=== PATIENT | male | born 1945 | race Caucasian/White ===

== ENCOUNTER 2017-07-23 05:41 | Day surgery (SDC) | payer OTHER, SELFPAY ==
[2017-07-23 06:13] VITALS: BP 125/89; PULSE 91; RESP 16; O2SAT 95; BMI 23.3
[2017-07-23 07:16] VITALS: BP 112/76; BP 125/89; PULSE 75; RESP 18; TEMP 36.4; O2SAT 98
--- NOTE | 2017-07-23 07:16 | PCM.OPRPT ---
Problem List (1) Encounter for screening for malignant neoplasm of colon Status: Acute Report of Operation Date of Procedure: 07/23/17 Pre-Operative Diagnosis: Z12.11 screening colonoscopy Post-Operative Diagnosis: Same Surgery/Procedure Performed:: [id number] colonoscopy Type of Anesthesia:: MAC Anesthesiologist: Branden Ling Description of Procedure: Patient was brought into the endoscopy suite and placed in the left lateral decubitus position. Patient was given graded anesthesia. Scope was inserted into the rectum. The scope was directed through the sigmoid colon, descending colon, transverse colon, ascending colon, to the cecum. Operative findings: 1. Cecum: Normal appearance no mass lesions normal ileocecal valve. 2. Ascending colon: Normal appearance no mass lesions. 3. Transverse colon: Normal appearance no mass lesions. 4. descending colon: Normal appearance no mass lesions. 5. Sigmoid colon: Normal appearance no mass lesions. 6. Rectum: Normal appearance no mass lesions retroflexion did show some internal hemorrhoids no masses are identified. Digital rectal exam was performed showing a smooth prostate with no masses within the anus. Patient will need to have another colonoscopy in 10 years.
--- NOTE | 2017-07-23 07:17 | HP.PCM_ITS ---
Problem List (1) Encounter for screening for malignant neoplasm of colon Status: Acute History of Present Illness Date of Admission: 07/23/17 The patient is a 72 year old M who presents for screening colonoscopy. Past Medical History Past Medical History (Chronic Problems): Chronic Problems (Last Reviewed 05/01/17 @ 16:48 by Esdras Camarena MD) Status post coronary artery stent placement (Chronic ~11/28/08) [id number] Atherosclerotic heart disease of [place] coronary artery without angina pectoris (Chronic) Hypertension (Chronic) Hyperlipidemia (Chronic) Allergies No Known Allergies Allergy (Verified 07/19/17 10:05) Home Medications: Ambulatory Orders Medication Instructions Recorded aspirin 81 mg tablet,delayed 81 mg PO QDAY 05/01/17 release atorvastatin 10 mg tablet 10 mg PO DAILY 90 Days 05/01/17 lisinopril 5 mg tablet 2.5 mg PO DAILY 90 Days 05/01/17 metoprolol succinate ER 50 mg 50 mg PO DAILY 90 Days 05/01/17 tablet,extended release 24 hr multivitamin tablet 1 tab PO QAM 05/01/17 Smoking Status: Former smoker - *Family History Maternal History Items: No pertinent history VTE Information - Inpt Only VTE Present on Admission: No VTE Mechan Device Prophylaxis: None VTE Pharm Prophylaxis ordered?: No Reason prophylaxis not ordered:: Treatment Not Indicated Patient Problems: Active and Suspected Problems (Last Reviewed 05/01/17 @ 16:48 by Esdras Camarena MD ) Encounter for screening for malignant neoplasm of colon (Acute) - Physical Exam Neck: Supple, No JVD Lungs: Clear to auscultation Cardiovascular: Regular rate, Regular Rhythm, No murmurs Abdomen: Bowel Sounds Present, Soft, Non Tender, Non-Distended Vital Signs Pulse Resp BP Pulse Ox 91 16 125/89 H 95 07/23/17 06:13 07/23/17 06:13 07/23/17 06:13 07/23/17 06:13 Oxygen Delivery Method Room Air Weight: 162 lb 7.691 oz Body Mass Index (BMI) 23.3 Assessment/Plan Active and Suspected Problems (Last Reviewed 05/01/17 @ 16:48 by Esdras Camarena MD ) Encounter for screening for malignant neoplasm of colon (Acute) My plan is to perform a colonoscopy.
--- NOTE | 2017-07-23 07:19 | OP.PCM_ITS ---
Problem List (1) Encounter for screening for malignant neoplasm of colon Status: Acute Report of Operation Date of Procedure: 07/23/17 Pre-Operative Diagnosis: Z12.11 screening colonoscopy Post-Operative Diagnosis: Same Surgery/Procedure Performed:: [id number] colonoscopy Type of Anesthesia:: MAC Anesthesiologist: Branden Ling Description of Procedure: Patient was brought into the endoscopy suite and placed in the left lateral decubitus position. Patient was given graded anesthesia. Scope was inserted into the rectum. The scope was directed through the sigmoid colon, descending colon, transverse colon, ascending colon, to the cecum. Operative findings: 1. Cecum: Normal appearance no mass lesions normal ileocecal valve. 2. Ascending colon: Normal appearance no mass lesions. 3. Transverse colon: Normal appearance no mass lesions. 4. descending colon: Normal appearance no mass lesions. 5. Sigmoid colon: Normal appearance no mass lesions. 6. Rectum: Normal appearance no mass lesions retroflexion did show some internal hemorrhoids no masses are identified. Digital rectal exam was performed showing a smooth prostate with no masses within the anus. Patient will need to have another colonoscopy in 10 years.
[2017-07-23 07:20] VITALS: BP 108/76; BP 125/89; PULSE 74; RESP 18; O2SAT 99
[2017-07-23 07:25] VITALS: BP 106/69; BP 125/89; PULSE 77; RESP 18; O2SAT 98
[2017-07-23 07:31] VITALS: BP 109/74; BP 125/89; PULSE 78; RESP 18; TEMP 36.9; O2SAT 99
[2017-07-23 07:41] VITALS: BP 125/89
== END 2017-07-23 07:46 | disposition home or self-care (01) ==
LOC: EN 05:43 → AC 05:44
PROVIDERS: Family Provider Family Medicine; PCP Family Medicine; Visit Provider Surgery
PROC: 0DJD8ZZ Inspection of Lower Intestinal Tract, Via Natural or Artificial Opening Endoscopic (ICD-10-PCS; CPT 45378; principal; 2017-07-23 06:55)
DX: Z12.11 Encounter for screening for malignant neoplasm of colon (principal); K64.8 Other hemorrhoids; I25.10 Atherosclerotic heart disease of native coronary artery without angina pectoris; I10 Essential (primary) hypertension; E78.5 Hyperlipidemia, unspecified; Z95.5 Presence of coronary angioplasty implant and graft; Z87.891 Personal history of nicotine dependence; Z79.82 Long term (current) use of aspirin
CPT/HCPCS: 45378; J7120

== ENCOUNTER → 2018-06-25 07:02 | Outpatient (CLI) | payer MEDICARE, SELFPAY ==
[2018-06-25 10:49] LABS: ALB/GLOB Ratio 1.1 RATIO (0.9-2.4); AST(SGOT) 25 U/L (15-37); Alanine Aminotransfer ALT/SGPT 40 U/L (16-61); Albumin, Serum 3.8 g/dL (3.2-5.0); Alkaline Phosphatase 35 U/L (45-117); Anion Gap 9 (5-15); BUN 20 mg/dL (7-18); BUN/Creat Ratio 17.7 RATIO (10-20); Bilirubin, Direct 0.18 mg/dL (0.00-0.30); Calcium,Total 8.7 mg/dL (8.5-10.1); Chloride 107 mmol/L (98-107); Cholesterol 161 mg/dL (200); Creatinine, Serum 1.13 mg/dL (0.70-1.30); EST Glomerular Filtration Rate 68 mL/min (>60); Est Glom Filt Rate - Afr Amer 82 mL/min (>60); Globulin 3.6 g/dL (2.2-4.2); Glucose 79 mg/dL (74-106); High Density Lipoprotein 51 mg/dL; Protein, Total 7.4 g/dL (6.4-8.2); Sodium Level 142 mmol/L (136-145); Thyroid Stim Hormone (TSH) 2.72 uIU/mL (0.358-3.74); Triglycerides 187 mg/dL; Very Low Density Lipoprotein 37 mg/dL (5-40)
== END ==
PROVIDERS: Internal Medicine Cardiovascular Disease; Family Provider Family Medicine; PCP Family Medicine; Referring Provider Family Medicine; Visit Provider Family Medicine
DX: I10 Essential (primary) hypertension (principal); I25.10 Atherosclerotic heart disease of native coronary artery without angina pectoris; K80.20 Calculus of gallbladder without cholecystitis without obstruction; E78.5 Hyperlipidemia, unspecified
CPT/HCPCS: 36415; 80053; 80061; 82248; 84443

== ENCOUNTER → 2018-11-08 10:30 | Outpatient (CLI) | payer MEDICARE, SELFPAY ==
[2018-06-27 14:30] VITALS: BMI 25.7
--- NOTE | 2018-11-08 10:36 | US_ITS ---
HISTORY:H/O GALLSTONES Ultrasound of the right upper quadrant No priors Findings: The liver measures 13.8 cm in length. There is mild increased echogenicity compatible with steatosis The main portal vein demonstrates hepatopedal flow There are multiple stones seen within the gallbladder lumen. There is no evidence of gallbladder wall thickening. There is a negative sonographic Fontenot sign related by the ct scan technologist The common bile duct is within normal limits for the patient's age Pancreas is not visualized due to overlying bowel gas The right kidney measures 10.8 x 5.3 x 5.9 cm. The cortex is preserved. No hydronephrosis or nephrolithiasis. There is vascular flow US/Abdomen Limited IMPRESSION: Cholelithiasis Negative sonographic Fontenot sign related by the ct scan technologist Hepatic steatosis Nonvisualization of the pancreas due to overlying bowel gas at 2140 Reported and signed by: Vernell Velázquez DO Electronically Signed: Vernell Velázquez DO at 21:39 EDT Tel , Service support ,
== END ==
PROVIDERS: Family Provider Family Medicine; PCP Family Medicine; Referring Provider Family Medicine; Visit Provider Family Medicine
DX: K80.20 Calculus of gallbladder without cholecystitis without obstruction (principal)
CPT/HCPCS: 76705

== ENCOUNTER → 2019-05-05 09:37 | Outpatient (CLI) | payer MEDICARE, SELFPAY ==
[2018-06-27 14:30] VITALS: BMI 25.7
[2019-05-05 12:17] LABS: Absolute Lymphocyte Count 1.47 X10^3/uL (0.83-4.51); Absolute Neutrophil Count 2.9 X10^3/uL (2.0-7.7); Basophil# 0.04 X10^3/uL; Basophil% 0.8 % (0-1); Eosinophil# 0.31 X10^3/uL; Hematocrit 46.5 % (40-54); Hemoglobin 15.4 g/dL (13.0-16.5); Lymphocyte # 1.47 X10^3/ul (4.0); Lymphocyte % 28.5 % (19-41); Mean Corp Hgb Conc 33.1 g/dL (32-36); Mean Corpuscular Hgb 31.4 pg (27.0-32.0); Mean Corpuscular Volume 94.7 fL (80-94); Mean Platelet Vol. 9.9 fl (6.2-12.0); Monocyte# 0.46 X10^3/uL; Monocyte% 8.9 % (0-10); NRBC Flagged by Analyzer 0 % (0-5); Neutrophil # 2.87 X10^3/uL (2.7-7.7); Neutrophil % 55.6 % (47-70); Platelet Count 202 K/mm3 (150-450); RBC Distribution Width CV 12.4 % (11.6-14.6); Red Blood Count 4.91 M/mm3 (4.6-6.2); White Blood Count 5.2 K/mm3 (4.4-11.0)
[2019-05-05 12:41] LABS: Microalbumin,Random Urine 24.7 mg/L (NO RANGE EST.); Microalbumin:Creatinine Ratio 16.5 mg/g CRE (<30 mg/g CRE)
[2019-05-05 12:45] LABS: Vitamin B12 357 pg/mL (211-911)
[2019-05-05 13:16] LABS: ALB/GLOB Ratio 1.1 RATIO (0.9-2.4); AST(SGOT) 19 U/L (15-37); Alanine Aminotransfer ALT/SGPT 33 U/L (16-61); Albumin, Serum 3.6 g/dL (3.2-5.0); Alkaline Phosphatase 39 U/L (45-117); Anion Gap 4 (5-15); BUN 18 mg/dL (7-18); BUN/Creat Ratio 15.7 RATIO (10-20); Bilirubin, Direct 0.11 mg/dL (0.00-0.30); Calcium,Total 8.5 mg/dL (8.5-10.1); Chloride 111 mmol/L (98-107); Cholesterol 160 mg/dL (200); Creatinine, Serum 1.15 mg/dL (0.70-1.30); EST Glomerular Filtration Rate 66 mL/min (>60); Est Glom Filt Rate - Afr Amer 80 mL/min (>60); Globulin 3.2 g/dL (2.2-4.2); Glucose 89 mg/dL (74-106); High Density Lipoprotein 52 mg/dL; PSA,Total - Annual Screen 1.38 ng/mL (0.00-4.00); Potassium 4.2 mmol/L (3.5-5.1); Protein, Total 6.8 g/dL (6.4-8.2); Sodium Level 142 mmol/L (136-145); Thyroid Stim Hormone (TSH) 1.57 uIU/mL (0.358-3.74); Triglycerides 145 mg/dL; Very Low Density Lipoprotein 29 mg/dL (5-40)
== END ==
PROVIDERS: Family Provider Family Medicine; PCP Family Medicine; Visit Provider Internal Medicine Cardiovascular Disease
DX: E78.5 Hyperlipidemia, unspecified (principal); R20.2 Paresthesia of skin; I10 Essential (primary) hypertension; I25.10 Atherosclerotic heart disease of native coronary artery without angina pectoris; Z12.5 Encounter for screening for malignant neoplasm of prostate
CPT/HCPCS: 36415; 80053; 80061; 82043; 82248; 82570; 82607; 82746; 84153; 84443; 85025; G0103